=== PATIENT | male | born 1990 | race African-American/Black ===

== ENCOUNTER 2025-06-15 08:23 | Outpatient (CLI) | payer BC, SELFPAY ==
--- OUTSIDE RECORDS SUMMARY | 2025-06-15 08:29 | XMS_ITS | Clinical Summary ---
Author Organization [address] Address [address] [place] [id number] Care Team Providers Care Cuff Matcher Name Role Phone Ledy Maguire NP Primary Care Provider [phone] Allergies No known active allergies Medications No known medications Active Problems No known active problems Social History Tobacco Use Types Packs/Day Years Used Date Smoking Tobacco: Never Assessed Sex and Gender Information Value Date Recorded Sex Assigned at Not on file Legal Sex Male 10:42 AM CDT Gender Identity Not on file Sexual Orientation Not on file Last Filed Vital Signs Vital Sign Reading Time Taken Comments Blood Pressure 138/86 01/21/2025 8:26 AM CYBER SECURITY ANALYST Pulse 86 01/21/2025 8:26 AM CYBER SECURITY ANALYST Temperature 36.9 C (98.4 F) 01/21/2025 8:26 AM CYBER SECURITY ANALYST Respiratory Rate 18 01/21/2025 8:26 AM CYBER SECURITY ANALYST Oxygen Saturation 97% 01/21/2025 8:26 AM CYBER SECURITY ANALYST Inhaled Oxygen Concentration - - Weight 74.4 kg (164 lb) 01/21/2025 8:26 AM CYBER SECURITY ANALYST Height - - Body Mass Index - - Plan of Treatment Health Maintenance Due Date Last Done Comments Depression Screening 1990 Hepatitis C Screening 1990 Varicella Vaccines (1 of 2 - 13+ 2-dose series) 2003 DTaP/Tdap/Td Vaccine (6 - Tdap) 07/09/2003 07/08/2003, 08/05/1995, 03/19/1992, Additional history exists Regular Well Visit/Exam 18-64 2008 HPV Vaccines (1 - 3-dose SCDM series) 2017 Influenza Vaccine (#1) 2025 Hepatitis B Screening Completed 02/04/1999, 999 Pneumococcal vaccine <65 Aged Out No longer eligible based on patient's age to complete this topic Insurance [facility] Care Teams Cuff Matcher Relationship Specialty Start Date End Date Ledy Maguire NP [address] [place], [place] [id number] PCP - General Cardiovascular Disease 01/21/25
--- OUTSIDE RECORDS SUMMARY | 2025-06-15 08:29 | XMS_ITS | Referral Summary ---
Author Organization [address] Address [address] [place] [id number] Care Team Providers Care Line Driver Name Role Phone Ledy Maguire NP Primary Care Provider Allergies No known active allergies Medications No [...] Comments Blood Pressure 138/86 01/21/2025 8:26 AM CURRICULUM DEVELOPMENT SPECIALIST Pulse 86 01/21/2025 8:26 AM CURRICULUM DEVELOPMENT SPECIALIST Temperature 36.9 C (98.4 F) 01/21/2025 8:26 AM CURRICULUM DEVELOPMENT SPECIALIST Respiratory Rate 18 01/21/2025 8:26 AM CURRICULUM DEVELOPMENT SPECIALIST Oxygen Saturation 97% 01/21/2025 8:26 AM CURRICULUM DEVELOPMENT SPECIALIST Inhaled Oxygen Concentration - - Weight 74.4 kg (164 lb) 01/21/2025 8:26 AM CURRICULUM DEVELOPMENT SPECIALIST Height - - Body Mass Index - - Plan of Treatment Not on file Insurance Care Teams Line Driver Relationship Specialty Start Date End Date Ledy Maguire NP [address] [place] [address] PCP - General Cardiovascular Disease 01/21/25
[2025-06-15 13:02] LABS: Hematocrit 42.1 % (42.0-52.0); Hemoglobin 13.8 g/dL (14.0-18.0); Immature Granulocyte Percent A 0.5 % (0-0.5); Lymphocytes Absolute Auto 3.19 K/mm3 (0.9-3.2); Mean Corpuscular HGB Conc 32.8 g/dl (32-36); Mean Corpuscular Hemoglobin 27.6 pg (26-34); Mean Corpuscular Volume 84.2 fl (80-100); Nucleated Red Blood Cells Absolute Auto 0.000 K/mm3 (0.0-0.012); Nucleated Red Blood Cells Perc 0.0 % (0.0-0.2); Platelet Count Result 223 k/mm3 (150-375); Red Blood Count 5.00 M/mm3 (4.6-6.20); White Blood Count 6.2 K/mm3 (4.5-10.0)
[2025-06-15 13:12] LABS: Alanine Aminotransferase 23 U/L (6-50); Albumin Level 4.5 g/dL (3.5-5.1); Alkaline Phosphatase 64 U/L (38-126); Anion Gap 9 mmol/L (4-12); Aspartate Amino Transferase 62 U/L (17-59); Bilirubin,Total 0.4 mg/dL (0.2-1.3); Blood Urea Nitrogen 12 mg/dL (9-20); Calcium 9.3 mg/dL (8.4-10.2); Carbon Dioxide 27 mmol/L (22-30); Chloride 102 mmol/L (98-107); Cholesterol 186 mg/dL (0-200); Estimated Glomerular Filt Rate > 60; Glucose 96 mg/dL (65-110); HDL Direct 49 mg/dL; Potassium 4.1 mmol/L (3.4-5.0); Sodium 138 mmol/L (137-145); Total Protein 7.9 g/dL (6.3-8.2); Triglycerides 83 mg/dL (<150)
== END 2025-06-15 08:24 | disposition home or self-care (01) ==
LOC: ANHGOSHLAB 08:24
PROVIDERS: PCP Internal Medicine; Visit Provider Nurse Practitioner
DX: Z13.228 Encounter for screening for other metabolic disorders (principal); Z13.220 Encounter for screening for lipoid disorders
CPT/HCPCS: 36415; 80053; 80061; 85025